=== PATIENT | male | born 2000 | race Caucasian/White ===

== ENCOUNTER 2023-05-15 17:32 | Emergency (ER) | payer OTHER ==
[2023-05-15 17:41] VITALS: TEMP 98.3
[2023-05-15] MEDS ORDERED: LIDOCAINE 1% INJ 10MG/ML (20 ML MDV) SQ ONE (17:48)
[2023-05-15] MEDS ORDERED: IBUPROFEN 600 MG STARTER PACK 4 TAB BTL PO STA (17:56)
[2023-05-15] MEDS ORDERED: SULFAMETH-TMP DS STARTER PACK 2 TAB BTL PO STA (17:56)
--- NOTE | 2023-05-15 18:11 | ED ---
Extremity Problem HPI - General Chief complaint: Extremity Injury, Lower Stated complaint: L toe pain Time Seen by Provider: 05/15/23 17:41 Source: patient, RN notes reviewed Mode of arrival: ambulatory Limitations: no limitations - History of Present Illness Initial comments: This is a 22-year-old male who presents to the emergency department for left g reat toe pain. States that the left great toe has been becoming increasingly red and painful over the last few days. Denies any fevers or chills. Also denies any injuries. Denies any history of similar symptoms in the past. He is not taking anything to manage his pain. Denies any fevers, chills, sore throat, cough, dyspnea, chest pain, palpitations, abdominal pain, nausea, vomiting, diarrhea, back pain, or headaches. - Related Data Previous Rx's Medication Instructions Recorded Clindamycin [Cleocin] 450 mg PO Q8H #63 capsule 11/02/22 Ibuprofen [Motrin] 800 mg PO Q8HR PRN #30 tab 11/02/22 Cephalexin [Keflex] 500 mg PO Q6HR 7 Days #28 cap 05/15/23 Ibuprofen [Motrin] 800 mg PO Q8H PRN #30 tab 05/15/23 Allergies Allergy/AdvReac Type Severity Reaction Status Date / Time Penicillins Allergy Unknown Verified 05/15/23 17:39 Childhood Review of Systems ROS Statement: Those systems with pertinent positive or pertinent negative responses have been documented in the HPI. ROS Other: All systems not noted in ROS Statement are negative. Past Medical History Past Medical History: No Reported History History of Any Multi-Drug Resistant Organisms: None Reported Past Surgical History: No Surgical Hx Reported Past Psychological History: No Psychological Hx Reported Smoking Status: Never smoker, Vaper Past Alcohol Use History: None Reported Past Drug Use History: None Reported, Marijuana General Exam Limitations: no limitations General appearance: alert, in no apparent distress Head exam: Present: atraumatic, normocephalic, normal inspection Respiratory exam: Present: normal lung sounds bilaterally. Absent: respiratory distress, wheezes, rales, rhonchi, stridor Cardiovascular Exam: Present: regular rate, normal rhythm, normal heart sounds. Absent: systolic murmur, diastolic murmur, rubs, gallop, clicks Extremities exam: Present: other (Erythema, increased heat, and tenderness to the distal aspect of the left great toe with ingrown toenail.) Neurological exam: Present: alert, oriented X3, CN II-XII intact Psychiatric exam: Present: normal affect, normal mood Course Vital Signs 05/15/23 05/15/23 17:35 18:36 Temperature 98.3 F Pulse Rate 89 76 Respiratory 20 16 Rate Blood Pressure 153/78 145/68 O2 Sat by Pulse 95 98 Oximetry Procedures - Laceration Laceration #1 Consent Obtained: verbal consent Indication: laceration Site: other (left great toe) Size (cm): 1 Description: linear Depth: simple, single layer Anesthetic Used: lidocaine 1% Anesthesia Technique: local infiltration Amount (mls): 1 Pre-repair: wound explored, irrigated extensively Type of Sutures: vicryl Size of Sutures: 5-0 Number of Sutures: 1 Technique: simple, interrupted - Nerve Block Consent Obtained: verbal consent Local Anesthetic Used: Lidocaine 1% Amount of anesthesia used: 5 Side: left Nerve Blocks: digital Medical Decision Making - Medical Decision Making This is a 22-year-old male who presents to the emergency department for pain and erythema to the left great toe. Was pt. sent in by a medical professional or institution? @ -No Did you speak to anyone other than the patient for history? @ -No Did you review nursing and triage notes? @ -Yes, and I agree, it is accurate with regards to the patient's symptoms. Were old charts reviewed? @ -No Differential Diagnosis? @ -Differential Toe Pain: Ingrown toenail, cellulitis, gout, injury, subungual hematoma, this is not meant to be an all-inclusive list. EKG interpreted by me (3pts min.)? @ -Not obtained X-rays interpreted by me (1pt min.)? @ -Not obtained CT interpreted by me (1pt min.)? @ -Not obtained U/S interpreted by me (1pt. min.)? @ -Not obtained What testing was considered but not performed? (CT, X-rays, U/S, labs)? Why? @ -None What meds were considered but not given? Why? @ -None Did you discuss the management of the patient with other professionals? @ -No Did you reconcile home meds? @ -No Was smoking cessation discussed for >3mins.? @ -No Was critical care preformed (if so, how long)? @ -No Were there social determinants of health that impacted care today? How? (Homelessness, low income, unemployed, alcoholism, drug addiction, transportation, low edu. Level, literacy, decrease access to med. care, fpc, rehab)? @ -No Was there de-escalation of care discussed even if they declined? (Discuss DNR or withdrawal of care, Hospice)? @ -No What co-morbidities impacted this encounter? (DM, HTN, Smoking, COPD, CAD, Cancer, CVA, Hep., AIDS, mental health diagnosis, sleep apnea, morbid obesity)? @ -None Was patient admitted / discharged? @ -Discharged. Physical examination was consistent with an ingrown toenail complicated by infection. There was a large flap of skin covering the portion of the ingrown toenail as well. We initially did a digital block, however this was not very long lasting for the patient and we also did local infiltration. The portion of the flap was removed and the rest of it was pushed to the side to expose the ingrown portion of the toenail. The ingrown portion of the nail was lifted out from the stuck position. We did attempt to put a small splint under this, however patient was unable to tolerate it due to the pain. Additionally, he did have a large amount of bleeding from a small capillary and this was tied off with a Vicryl suture and the bleeding was well controlled. The procedure itself was successful, however the patient did have substantial pain, which I advised is common with this kind of procedure and problem. His toe was bandaged and he was given a postoperative shoe. Prescription for Keflex provided with dosing instructions reviewed. Undiagnosed new problem with uncertain prognosis? @ -None Drug Therapy requiring intensive monitoring for toxicity (Heparin, Nitro, Insulin, Cardizem)? @ -None Were any procedures done? @ -Digital block of the left great toe and suture placement Diagnosis/symptom? @ -Left great toe ingrown toenail, cellulitis Acute, or Chronic, or Acute on Chronic? @ -Acute Uncomplicated (without systemic symptoms) or Complicated (systemic symptoms)? @ -Uncomplicated Side effects of treatment? @ -None Exacerbation, Progression, or Severe Exacerbation] @ -Not applicable Poses a threat to life or bodily function? @ -No Return precautions reviewed in depth, the patient is instructed to return to the emergency department with any new, worsening, or concerning symptoms. Patient verbalized understanding. This case was discussed in detail with the attending ED physician, Dr. Ortiz. Presentation, findings, and treatment plan discussed in detail as well. Disposition Clinical Impression: Ingrown left big toenail, Cellulitis Disposition: HOME SELF-CARE Instructions (If sedation given, give patient instructions): Ingrown Nail (ED) Additional Instructions: Return to the emergency department with any new, worsening, or concerning symptoms. Alternate with ibuprofen and Tylenol as needed for pain relief. Take the antibiotic as prescribed for 7 days. If it continues to bleed a significant amount, apply pressure for 15-20 minutes. Follow up with your primary care provider in 1-2 days. Prescriptions: Cephalexin [Keflex] 500 mg PO Q6HR 7 Days #28 cap Ibuprofen [Motrin] 800 mg PO Q8H PRN #30 tab PRN Reason: Pain Is patient prescribed a controlled substance at d/c from ED?: No Referrals: Nonstaff,Physician [Primary Care Provider] - 1-2 days
[2023-05-15 18:41] VITALS: BP 145/68; PULSE 76; RESP 16
[2023-05-15] MEDS ORDERED: ACET/COD 300 MG/30 MG STARTER PACK 6 TAB BTL PO STA (22:38)
== END 2023-05-15 19:10 | disposition home or self-care (01) ==
LOC: EC 17:32
DX: S91.112A Laceration without foreign body of left great toe without damage to nail, initial encounter (principal); L60.0 Ingrowing nail; L03.032 Cellulitis of left toe; F12.90 Cannabis use, unspecified, uncomplicated; F17.290 Nicotine dependence, other tobacco product, uncomplicated; Z88.0 Allergy status to penicillin; X58.XXXA Exposure to other specified factors, initial encounter
CPT/HCPCS: 99283; 12001; J2001

== ENCOUNTER 2023-05-15 22:33 | Emergency (ER) | payer OTHER ==
[2023-05-15] MEDS ORDERED: MORPHINE SULFATE 4 MG/ML SYRINGE IM STA (22:36)
[2023-05-15] MEDS ORDERED: HYDROcodone/APAP 7.5-325MG 1 EACH TAB PO ONE (22:36)
[2023-05-15] MEDS ORDERED: KETOROLAC 15 MG/ML 1 ML VIAL IM STA (22:36)
[2023-05-15] MEDS ORDERED: LIDOCAINE-PRILOCAINE 2.5-2.5% CREAM 5 GM TUBE TOPICAL STA (22:36)
[2023-05-15] MEDS ORDERED: ACET/COD 300 MG/30 MG STARTER PACK 6 TAB BTL PO STA (22:39)
--- NOTE | 2023-05-15 22:43 | ED ---
Recheck HPI - General Chief Complaint: Recheck/Abnormal Lab/Rx Stated Complaint: Ingrown toe nail pain Time Seen by Provider: 05/15/23 22:34 Source: patient, family, RN notes reviewed Mode of arrival: ambulatory Limitations: no limitations - History of Present Illness Initial Comments: This is a 22-year-old male who presents to the emergency department for pain to the left great toenail. I had evaluated the patient earlier today for an ingrown toenail to the left great toe complicated by cellulitis. We were able to pop out the area of the ingrown toenail, however there was a large overlying skin flap, and the procedure was fairly painful for the patient. He returns due to the increasing pain. States that the numbing medication with digital block started to wear off, and ibuprofen has not been adequately managing his symptoms. Denies any fevers, chills, sore throat, cough, dyspnea, chest pain, palpitations, abdominal pain, nausea, vomiting, diarrhea, back pain, or headaches. - Related Data Previous Rx's Medication Instructions Recorded Clindamycin [Cleocin] 450 mg PO Q8H #63 capsule 11/02/22 Ibuprofen [Motrin] 800 mg PO Q8HR PRN #30 tab 11/02/22 Cephalexin [Keflex] 500 mg PO Q6HR 7 Days #28 cap 05/15/23 HYDROcodone/APAP 5-325MG [[place] 1 tab PO Q6HR PRN 3 Days #12 tab 05/15/23 5-325] Ibuprofen [Motrin] 800 mg PO Q8H PRN #30 tab 05/15/23 Allergies Allergy/AdvReac Type Severity Reaction Status Date / Time Penicillins Allergy Unknown Verified 05/15/23 17:39 Childhood Review of Systems ROS Statement: Those systems with pertinent positive or pertinent negative responses have been documented in the HPI. ROS Other: All systems not noted in ROS Statement are negative. Past Medical History Past Medical History: No Reported History History of Any Multi-Drug Resistant Organisms: None Reported Past Surgical History: No Surgical Hx Reported Past Psychological History: No Psychological Hx Reported Smoking Status: Never smoker, Vaper Past Alcohol Use History: None Reported Past Drug Use History: None Reported, Marijuana General Exam Limitations: no limitations General appearance: alert, in no apparent distress Head exam: Present: atraumatic, normocephalic, normal inspection Respiratory exam: Present: normal lung sounds bilaterally. Absent: respiratory distress, wheezes, rales, rhonchi, stridor Cardiovascular Exam: Present: regular rate, normal rhythm, normal heart sounds. Absent: systolic murmur, diastolic murmur, rubs, gallop, clicks Extremities exam: Present: other (The left great toe is bandaged. There is no active bleeding.) Neurological exam: Present: alert, oriented X3, CN II-XII intact Psychiatric exam: Present: normal affect, normal mood Course Vital Signs 05/15/23 22:43 Temperature 98 F Pulse Rate 88 Respiratory 18 Rate Blood Pressure 119/82 O2 Sat by Pulse 98 Oximetry Medical Decision Making - Medical Decision Making This is a 22-year-old male who presents to the emergency department for left great toe pain. Was pt. sent in by a medical professional or institution? @ -No Did you speak to anyone other than the patient for history? @ -No Did you review nursing and triage notes? @ -Yes, and I agree, it is accurate with regards to the patient's symptoms. Were old charts reviewed? @ -No Differential Diagnosis? @ -Differential Toe Pain: Ingrown toenail, cellulitis, gout, injury, this is not meant to be an all- inclusive list. EKG interpreted by me (3pts min.)? @ -Not obtained X-rays interpreted by me (1pt min.)? @ -Not obtained CT interpreted by me (1pt min.)? @ -Not obtained U/S interpreted by me (1pt. min.)? @ -Not obtained What testing was considered but not performed? (CT, X-rays, U/S, labs)? Why? @ -None What meds were considered but not given? Why? @ -None Did you discuss the management of the patient with other professionals? @ -No Did you reconcile home meds? @ -No Was smoking cessation discussed for >3mins.? @ -No Was critical care preformed (if so, how long)? @ -No Were there social determinants of health that impacted care today? How? (Homelessness, low income, unemployed, alcoholism, drug addiction, transportation, low edu. Level, literacy, decrease access to med. care, fdc, rehab)? @ -No Was there de-escalation of care discussed even if they declined? (Discuss DNR or withdrawal of care, Hospice)? @ -No What co-morbidities impacted this encounter? (DM, HTN, Smoking, COPD, CAD, Ca ncer, CVA, Hep., AIDS, mental health diagnosis, sleep apnea, morbid obesity)? @ -None Was patient admitted / discharged? @ -Discharged. Discussed with the patient that given the extent of his ingrown toenail and overlying infection, this will likely be painful for the next couple of days. He was already given a prescription for Ibuprofen and Keflex that he will continue taking as prescribed. He was given pain medication and a starter pack for Tylenol #3 in the emergency department. Patient discharged home in stable condition with improvement in symptoms. Otherwise advised ibuprofen and Tylenol as needed for pain relief and follow-up with his primary care provider. Undiagnosed new problem with uncertain prognosis? @ -None Drug Therapy requiring intensive monitoring for toxicity (Heparin, Nitro, Insulin, Cardizem)? @ -None Were any procedures done? @ -None Diagnosis/symptom? @ -Left ingrown toenail, cellulitis Acute, or Chronic, or Acute on Chronic? @ -Acute Uncomplicated (without systemic symptoms) or Complicated (systemic symptoms)? @ -Uncomplicated Side effects of treatment? @ -None Exacerbation, Progression, or Severe Exacerbation] @ -Not applicable Poses a threat to life or bodily function? @ -No Return precautions reviewed in depth, the patient is instructed to return to the emergency department with any new, worsening, or concerning symptoms. Patient verbalized understanding. This case was discussed in detail with the attending ED physician, Dr. Og. Presentation, findings, and treatment plan discussed in detail as well. Disposition Clinical Impression: Ingrown left big toenail, Cellulitis Disposition: HOME SELF-CARE Instructions (If sedation given, give patient instructions): Ingrown Nail (ED) Additional Instructions: Return to the emergency department with any new, worsening, or concerning sym ptoms. Alternate with ibuprofen and Tylenol as needed for pain relief. Follow up with your primary care provider in 1-2 days. Is patient prescribed a controlled substance at d/c from ED?: No Referrals: Nonstaff,Physician [Primary Care Provider] - 1-2 days
[2023-05-15 22:46] VITALS: BP 119/82; PULSE 88; RESP 18; TEMP 98
== END 2023-05-15 23:01 | disposition home or self-care (01) ==
LOC: EC 22:33
DX: L60.0 Ingrowing nail (principal); L03.032 Cellulitis of left toe; F17.290 Nicotine dependence, other tobacco product, uncomplicated; F12.90 Cannabis use, unspecified, uncomplicated; Z88.0 Allergy status to penicillin
CPT/HCPCS: 99283; 96372 ×2; J2270; J1885